=== PATIENT | female | born 1990 | race Caucasian/White ===

== ENCOUNTER → 2016-12-28 | Outpatient (CLI) | payer OTHER | END | disposition home or self-care (01) | LOC: LABWHC1 07:47 | PROVIDERS: ATTEND Obstetrics & Gynecology | DX: Z36 Encounter for antenatal screening of mother (principal) | CPT/HCPCS: 36415; 82950 ==

== ENCOUNTER 2017-04-04 05:50 | Inpatient (IN) | payer OTHER ==
[2017-04-04] MEDS ORDERED: METHYLERGONOVINE 0.2 MG/ML 1 ML AMP IM PRN (06:08)
[2017-04-04] MEDS ORDERED: TERBUTALINE 1 MG/ML VIAL SQ PRN (06:08)
[2017-04-04] MEDS ORDERED: CARBOPROST TROMETHAMINE 250 MCG/ML 1 ML AMP IM PRN (06:08)
[2017-04-04] MEDS ORDERED: LIDOCAINE 1% (PF) 10 MG/ML (30 ML SDV) SQ PRN (06:08)
[2017-04-04] MEDS ORDERED: OXYTOCIN 10 UNIT/ML 1 ML VIAL IM PRN (06:08)
[2017-04-04] MEDS ORDERED: OXYTOCIN 20 UNITS/1000 ML NS 1,000 ML IV SCH (06:15)
[2017-04-04] MEDS: LACTATED RINGERS 1,000 ML IV SCH ×2 (06:16→10:30)
[2017-04-04 06:26] LABS: Basophils # (A) 0.1 k/uL (0-0.2); Basophils % (A) 0 %; CH 30.6; Eosinophils # (A) 0.1 k/uL (0-0.7); Eosinophils % (A) 1 %; HCT 37.9 % (34.0-46.0); HGB 12.4 gm/dL (11.4-16.0); Luc # (Auto) 0.36; Luc % (Auto) 3; Lymphocytes # (A) 2.5 k/uL (1.0-4.8); Lymphocytes % (A) 21 %; MCH 30.6 pg (25.0-35.0); MCHC 32.8 g/dL (31.0-37.0); MCV 93.3 fL (80.0-100.0); Mean Platelet Volume 8.2; Monocytes # (A) 0.7 k/uL (0-1.0); Monocytes % (A) 6 %; Neutrophils % (A) 68 %; RBC 4.06 m/uL (3.80-5.40); RDW 13.4 % (11.5-15.5); WBC 11.7 k/uL (3.8-10.6); WBC (Perox) 12.78
--- NOTE | 2017-04-04 07:26 | P.HPOB ---
History of Present Illness H&P Date: 04/04/17 This is a 26-year-old white female 3 para 1011 EDC 04/04/2017 at 40 weeks gestation. Patient presents today for elective induction, favorable multiparous cervix. She is having mild spontaneous uterine contractions upon admission. She states fetus is been active, she denies vaginal bleeding or fluid leakage. Past medical history is significant for bulging disks in her back, and a history of mononucleosis in 2014. Past surgical history LEEP procedure with negative margins in December 2006. Current medications vitamins. ALLERGIES Bactrim to which reports hives, titrated Leonardo M to which reports hives, and seasonal environmental ALLERGIES. Past medical history is significant for a breast cyst in the past. Social history patient is , she has never been a smoker, she denies alcohol or drug use. history group B strep cultures negative, blood type B positive. Rubella status immune, VDRL testing, urine culture, hepatitis B surface antigen , HIV testing, gonorrhea and chlamydia cultures all negative. One-hour Glucola 123. On exam this is a pleasant young female, she is 5 foot 3 inches, 197 pounds, vital signs are stable and she is afebrile. The general physical exam is within normal limits. The cervix is 3-4 cm dilated, 60-70% effaced, anterior, - 2, vertex, soft. Artificial amniorrhexis reveals clear fluid. heart rate is in the 140s with frequent accelerations, consistent with reactive NST. Impression: 40 week intrauterine , here for elective induction of labor , all signs reassuring. Plan: Oxytocin per hospital protocol. Close maternal and surveillance. Anticipate a normal spontaneous vaginal delivery. Past Medical History Past Medical History: No Reported History History of Any Multi-Drug Resistant Organisms: None Reported Additional Past Surgical History / Comment(s): leep procedure Past Anesthesia/Blood Transfusion Reactions: No Reported Reaction Past Psychological History: No Psychological Hx Reported Smoking Status: Never smoker Past Alcohol Use History: Rare Past Drug Use History: None Reported Medications and Allergies Home Medications Medication Instructions Recorded Confirmed Type Yls-Dcsl-Qmmrl Acid 1 cap PO HS 05/25/14 04/04/17 History [-U Capsule] Allergies Allergy/AdvReac Type Severity Reaction Status Date / Time phenazopyridine HCl Allergy Rash/Hives Verified 05/09/16 08:43 [From Pyridium] Exam - Vital Signs Vital signs: Intake and Output 04/03/17 04/04/17 04/04/17 22:59 06:59 14:59 Other: Weight 89.811 kg Results Result Diagrams: 04/04/17 06:10 Abnormal Lab Results - Last 24 Hours (Table) 04/04/17 Range/Units 06:10 WBC 11.7 H (3.8-10.6) k/uL Neutrophils # 8.0 H (1.3-7.7) k/uL
[2017-04-04 07:44] VITALS: RESP 16; BMI 34.0
[2017-04-04] MEDS ORDERED: SODIUM CHLORIDE 0.9% 100 ML BAG ONE (10:15)
[2017-04-04] MEDS ORDERED: fentaNYL (PF) 50 MCG/ML 5 ML AMP ONE (10:15)
[2017-04-04] MEDS ORDERED: BUPIVACAINE (PF) 0.25% 30 ML VIAL ONE (10:15)
[2017-04-04] MEDS ORDERED: BUPIVACAINE (PF) 0.25% 25 ML, fentaNYL (PF) 200 MCG in SODIUM CHLORIDE 0.9% 71 ML EPIDURAL ONE (11:02)
[2017-04-04] MEDS ORDERED: WITCH HAZEL 1 EACH MED..PAD TOPICAL PRN (14:30)
[2017-04-04] MEDS ORDERED: ACETAMINOPHEN TAB 325 MG TAB PO PRN (14:30)
[2017-04-04] MEDS ORDERED: Acetaminophen-Codeine 300-30mg TAB PO PRN (14:30)
[2017-04-04] MEDS ORDERED: LANOLIN CREAM 5 GM TUBE TOPICAL PRN (14:30)
[2017-04-04] MEDS ORDERED: ZOLPIDEM 5 MG TAB PO PRN (14:30)
[2017-04-04] MEDS ORDERED: BENZOCAINE/MENTHOL SPRAY 1 GM/SPRAY AEROSOL TOPICAL PRN (14:30)
[2017-04-04] MEDS ORDERED: diphenhydrAMINE 50 MG/ML 1 ML VIAL IVP PRN ×2 (14:30)
[2017-04-04] MEDS ORDERED: HYDROCORTISONE 2.5% RECTAL CREAM 30 GM TUBE RECTAL PRN (14:30)
[2017-04-04] MEDS ORDERED: diphenhydrAMINE 25 MG CAP PO PRN (14:30)
[2017-04-04] MEDS ORDERED: SIMETHICONE 80 MG CHEWABLE PO PRN (14:30)
[2017-04-04] MEDS ORDERED: diphenhydrAMINE 50 MG CAP PO PRN (14:30)
[2017-04-04] MEDS ORDERED: diphenhydrAMINE ELIXIR 25 MG/10 ML CUP PO PRN (14:30)
--- NOTE | 2017-04-04 14:30 | P.PROBDLV ---
Vaginal Delivery Note - . Vaginal Delivery Note: 26-year-old white female 3 para 1011 EDC 04/04/2017 at 40 weeks gestation. Patient presented for induction for term , favorable cervix. Group B strep cultures negative, blood type B positive, rubella status immune. Please see my dictated history and physical for details. Artificial amniorrhexis revealed clear fluid, oxytocin was started and titrated per hospital protocol. Patient requested epidural and this was placed without difficulty per anesthesia staff. She progressed well through labor and was judged to be completely dilated at 1413 hrs. Perineal body was prepped and draped in usual sterile fashion. With 1 good push , 's head delivered occiput anterior and restituted accordingly. There was no nuchal cord noted. The left or anterior shoulder was delivered from underneath the pubic symphysis at which time the oropharynx, nasopharynx, and external nares were bulb suctioned on the perineal body. Patient was officially delivered of a liveborn male at 1415 hrs. Umbilical cord was doubly clamped and ligated, he was handed to waiting nurses for evaluation where scores of 9 and 9 at one and 5 minutes respectively were given. The placenta delivered spontaneously, it was inspected and noted to be intact with trivascular cord at 1416 hrs. Fundus is massaged, firm and midline, 18 week size. Estimated blood loss 300 mL 's. Inspection of the cervix, vagina, perineum, periurethral and perirectal areas revealed a small first-degree perineal laceration that was easily repaired in the usual fashion with a single [id number] suture of 3-0 Vicryl. Infant weighed 7 lbs. 6 oz., 3360 g. All sponge needle and enhancement counts are correct at the end of the procedure. Patient is requesting circumcision for her son.
[2017-04-04] MEDS: SENNOSIDES-DOCUSATE SODIUM 1 EACH TAB PO SCH (21:54)
[2017-04-04] MEDS: IBUPROFEN 600 MG TAB PO PRN (22:16)
--- NOTE | 2017-04-05 08:26 | P.DS ---
Providers Date of admission: 04/04/17 05:50 Expected date of discharge: 04/05/17 Attending physician: Rosaura Mcbride Primary care physician: [facility] Course: This is a 26-year-old white female 3 para 1011 EDC 04/04/2017 at 40 weeks gestation. Patient presented for elective induction, favorable multiparous cervix at term. was essentially unremarkable, group B strep cultures negative, rubella status immune. Please see my dictated history and physical for details. Artificial amniorrhexis revealed clear fluid. Oxytocin was started and titrated per hospital protocol. Patient went on to deliver a liveborn male infant with scores of 9 and 9 at one and 5 minutes respectively. Infant weighed 7 lbs. 6 oz. or 3360 g. Please see my dictated delivery note for details. This morning the patient is doing well. She is voiding, ambulating and passing flatus without difficulty. Vital signs are stable and she is afebrile. Fundus is firm and in the midline, symmetric and 18 week size. Breast-feeding is going well. infant has been circumcised. Perineal body is clean and dry. Extremities are negative for edema. Patient is being discharged home in very good condition. She will follow-up with me in the office in 6 weeks. I have reminded her no intercourse, tampons or douching. She will continue to use ngjp-oxz-mggkjki products, Motrin 200 mg pills, 3 every 6 hours as needed for pain. I've asked her to call me with any fevers shakes or chills, foul smelling or copious lochia, with the passage of large blood clots, or indeed with any difficulties or concerns. Contraceptive options have been reviewed briefly and we will discuss this further in the office. Patient Condition at Discharge: Good Plan - Discharge Summary Discharge Medication List Unu-Rwym-Rvrbl Acid [-U Capsule] 1 cap PO HS 05/25/14 [History] Follow up Appointment(s)/Referral(s): Rosaura Mcbride MD [STAFF PHYSICIAN] - 6 Weeks Discharge Disposition: HOME SELF-CARE
[2017-04-05 09:21] VITALS: BP 95/62; PULSE 74; TEMP 97.5
[2017-04-05] MEDS: IBUPROFEN 600 MG TAB PO PRN (10:58)
[2017-04-05] MEDS: SENNOSIDES-DOCUSATE SODIUM 1 EACH TAB PO SCH (11:04)
== END 2017-04-05 15:00 | disposition home or self-care (01) | DRG 775 ==
LOC: 4FBP 05:50
PROVIDERS: ADMIT Obstetrics & Gynecology; ATTEND Obstetrics & Gynecology
PROC: 3E0R3CZ (ICD-10-PCS; principal; 2017-04-04)
PROC: 10E0XZZ Delivery of Products of Conception, External Approach (ICD-10-PCS; principal; 2017-04-04)
PROC: 3E033VJ Introduction of Other Hormone into Peripheral Vein, Percutaneous Approach (ICD-10-PCS; principal; 2017-04-04)
PROC: 0HQ9XZZ Repair Perineum Skin, External Approach (ICD-10-PCS; principal; 2017-04-04)
PROC: 00HU33Z Insertion of Infusion Device into Spinal Canal, Percutaneous Approach (ICD-10-PCS; principal; 2017-04-04)
PROC: 10907ZC Drainage of Amniotic Fluid, Therapeutic from Products of Conception, Via Natural or Artificial Opening (ICD-10-PCS; principal; 2017-04-04)
DX: O48.0 Post-term pregnancy (principal); O70.0 First degree perineal laceration during delivery; Z88.2 Allergy status to sulfonamides; Z37.0 Single live birth; Z3A.40 40 weeks gestation of pregnancy
CPT/HCPCS: 85025; 88307